=== PATIENT | female | born 1990 | race Caucasian/White ===

== ENCOUNTER 2017-05-25 20:38 | Emergency (ER) | payer OTHER ==
[~2017-05-25] VITALS: Ht 162.6 cm; Wt 99.8 kg
[2017-05-25 20:51] VITALS: BP 138/98
[2017-05-25] MEDS ORDERED: CYMBALTA60 MG PO (20:58)
[2017-05-25] MEDS ORDERED: TRAZODONE HCL100 MG PO (20:58)
[2017-05-25] MEDS ORDERED: FLEXERIL PO (20:59)
[2017-05-25] MEDS ORDERED: ULTRAM 50MG TAB50 MG PO (21:09)
== END 2017-05-25 21:30 | disposition home or self-care (01) ==
LOC: ER 20:38
DX: T23.102A Burn of first degree of left hand, unspecified site, initial encounter (principal); T31.0 Burns involving less than 10% of body surface; F17.210 Nicotine dependence, cigarettes, uncomplicated; X12.XXXA Contact with other hot fluids, initial encounter; Y93.89 Activity, other specified; Y92.89 Other specified places as the place of occurrence of the external cause; Y99.8 Other external cause status